=== PATIENT | male | born 1985 | race American Indian/Alaskan Native ===

== ENCOUNTER 2016-12-26 13:13 | Emergency (ER) | payer OTHER ==
[2016-12-26 13:14] VITALS: BMI 49.5
[2016-12-26 14:02] VITALS: RESP 16; TEMP 98.7
--- NOTE | 2016-12-26 14:12 | ED PDOC ---
Arrival/HPI - General Chief Complaint: Cough, Cold, Congestion Time Seen by Provider: 12/26/16 13:30 Historian: Patient - History of Present Illness Narrative History of Present Illness (Text): 12/26/16 13:58 A 31 year old male, whose past medical history includes bronchitis and seasonal allergies, presents to the emergency department complaining of hoarse voice and sore throat for 2 days. Patient reports also experiencing fatigue and nausea last night with temp up to 100 but denies any vomiting, abdominal pain, or any other complaints. Patient reports [place]; he [facility]. Also c/o small areas of itchy rash on legs. PMD: Dr. Vega Time/Duration: < week (2 days) Past Medical History - Provider Review Nursing Documentation Reviewed: Yes - Travel History Have you recently traveled outside w/in the past 3 mons?: Yes If Yes, travel location?: [facility] - Past History Past History: No Previous - Infectious Disease Hx of Infectious Diseases: None - Tetanus Immunization Tetanus Immunization: Unknown - Past Medical History Past Medical History: No Previous - Cardiac Hx Cardiac Disorders: No - Pulmonary Hx Bronchitis: Yes - Neurological Hx Neurological Disorder: No - HEENT Hx HEENT Disorder: No - Renal Hx Renal Disorder: No - Endocrine/Metabolic Hx Endocrine Disorders: No - Hematological/Oncological Hx Blood Disorders: No - Integumentary Hx Dermatological Disorder: No - Musculoskeletal/Rheumatological Hx Musculoskeletal Disorders: Yes Other/Comment: Knee Pain - Gastrointestinal Hx Gastrointestinal Disorders: No - Genitourinary/Gynecological Hx Genitourinary Disorders: No - Psychiatric Hx Depression: No Hx Substance Use: No - Past Surgical History Past Surgical History: No Previous - Surgical History Hx Orthopedic Surgery: Yes Other/Comment: Right Knee - Anesthesia Hx Anesthesia: Yes Hx Anesthesia Reactions: No Hx Malignant Hyperthermia: No - Suicidal Assessment Feels Threatened In Home Enviroment: No Family/Social History - Physician Review Nursing Documentation Reviewed: Yes Family/Social History: No Known Family HX Smoking Status: Light Smoker < 10 Cigarettes Daily Hx Alcohol Use: Yes Hx Substance Use: No Hx Substance Use Treatment: No Allergies/Home Meds Allergies/Adverse Reactions: Allergies peanut Allergy (Verified 12/26/16 13:47) RASH SEASONAL Allergy (Uncoded 12/06/16 18:20) WHEEZING Home Medications: Home Meds Medication Instructions Recorded Confirmed Cetirizine HCl [Zyrtec Allergy] 0 mg PO PRN 12/26/16 12/26/16 Review of Systems - Physician Review All systems were reviewed & negative as marked: Yes - Review of Systems Constitutional: Fevers (last night) ENT: Voice Changes (hoarse voice as described by patient), Sore Throat Gastrointestinal: Nausea (last night). absent: Abdominal Pain, Vomiting Physical Exam Vital Signs Reviewed: Yes Vital Signs Temp Pulse Resp BP Pulse Ox 12/26/16 13:44 98.7 F 58 L 16 130/73 98 Temperature: Afebrile Blood Pressure: Normal Pulse: Regular Respiratory Rate: Normal Appearance: Positive for: Well-Appearing Pain Distress: None Mental Status: Positive for: Alert and Oriented X 3 - Systems Exam Head: Present: Atraumatic, Normocephalic Pupils: Present: PERRL Conjunctiva: Present: Normal Mouth: Present: Moist Mucous Membranes Pharnyx: Present: Normal. No: ERYTHEMA, EXUDATE Neck: Present: Normal Range of Motion Respiratory/Chest: Present: Clear to Auscultation, Good Air Exchange. No: Respiratory Distress, Accessory Muscle Use Cardiovascular: Present: Regular Rate and Rhythm, Normal S1, S2. No: Murmurs Abdomen: Present: Normal Bowel Sounds. No: Tenderness, Distention, Peritoneal Signs Back: Present: Normal Inspection Upper Extremity: Present: Normal Inspection. No: Cyanosis, Edema Lower Extremity: Present: Normal Inspection. No: Edema Neurological: Present: GCS=15, CN II-XII Intact, Speech Normal Skin: Present: Erythematous (papular erythematous burnette in LE, excoriation burnette near hair follicles) Psychiatric: Present: Alert, Oriented x 3, Normal Insight, Normal Concentration Medical Decision Making ED Course and Treatment: 12/26/16 14:03 Impression: 31 year old male with hoarse voice, sore throat, and weakness. No fever here. Physical exam shows papular erythematous burnette in LE, excoriation burnette near hair follicles. Findings associated with URI. 0/5 by Centor score. Due to recent travel to [facility], patient will send malaria smear and Dengue Ab. Plan: -- Labs -- Reassess and disposition Prior Visits: Notes and results from previous visits were reviewed. Patient was last seen in the emergency department on 12/06/2016 for sharp intermittent bilateral upper abdominal pain. Patient was discharged home. Progress Notes: 12/26/16 14:50 CBC is unremarkable. Malaria and dengue blood work sent - will be followed through [place] folder. History otherwise consistent with URI and exam is unremarkable, except for rash - will d/c to use ibuprofen and robitussin DM and bactroban for rash. - Lab Interpretations Lab Results: 12/26/16 14:16 Lab Results 12/26/16 14:16: WBC 3.9 L D, RBC 4.65, Hgb 13.9 L, Hct 40.9 L, MCV 88.0, MCH 29.9, MCHC 34.0, RDW 13.6, Plt Count 217, MPV 10.7, Gran % 55.8, Lymph % (Auto) 34.9, [place]ham % (Auto) 6.5 H, Eos % (Auto) 2.3, Baso % (Auto) 0.5, Gran # 2.16, Lymph # 1.4, Windham # 0.3, Eos # 0.1, Baso # 0.02 - Scribe Statement The provider has reviewed the documentation as recorded by the Sarita Cook Provider Scribe Attestation: All medical record entries made by the Sarita were at my direction and personally dictated by me. I have reviewed the chart and agree that the record accurately reflects my personal performance of the history, physical exam, medical decision making, and the department course for this patient. I have also personally directed, reviewed, and agree with the discharge instructions and disposition. Disposition/Present on Arrival - Present on Arrival Any Indicators Present on Arrival: No History of DVT/PE: No History of Uncontrolled Diabetes: No Urinary Catheter: No History of Decub. Ulcer: No History Surgical Site Infection Following: None - Disposition Have Diagnosis and Disposition been Completed?: Yes Diagnosis: Upper respiratory infection, Rash Disposition: HOME/ ROUTINE Disposition Time: 14:40 Patient Plan: Discharge Condition: GOOD Discharge Instructions (ExitCare): Laryngitis (ED) Additional Instructions: Drink plenty of fluids. Take the medications as prescribed. Benadryl as needed for itching. Follow up with your primary care doctor. Return to the emergency department if any new concerning symptoms. Prescriptions: guaiFENesin/Dextromethorphan [Q-Tussin Dm 10 MG/5 Ml-100 MG/5 Ml 120 Ml] 4 tsp PO Q4H PRN #240 ml PRN Reason: Cough Ibuprofen [Motrin Tab] 1 tab PO Q8H PRN #20 tab PRN Reason: Pain, Moderate (4-7) Mupirocin 2% Cream [Bactroban Cream] 1 cre TOP BID #30 gm Referrals: Abel Vega DO [Primary Care Provider] - Follow up with primary Forms: [employer] ([place])
[2016-12-26 14:24] LABS: BASO # 0.02 K/mm3 (0.0-2.0); BASO % 0.5 % (0.0-3.0); EOS # 0.1 (0.0-0.7); EOS % 2.3 % (1.5-5.0); GRAN # 2.16 (1.4-6.5); GRAN % 55.8 % (50.0-68.0); HEMATOCRIT 40.9 % (42.0-52.0); LYMPH # 1.4 (1.2-3.4); LYMPH % 34.9 % (22.0-35.0); MEAN CORPUSCULAR HEMOGLOBIN 29.9 pg (25.0-35.0); MEAN PLATELET VOLUME 10.7 fl (7.0-11.0); MONO # 0.3 (0.1-0.6); MONO % 6.5 % (1.0-6.0); RED CELL DISTRIBUTION WIDTH 13.6 % (11.5-14.5); WHITE BLOOD COUNT 3.9 10^3/ul (4.5-11.0)
[2016-12-26 14:52] VITALS: BP 132/78; PULSE 62; O2SAT 100
== END 2016-12-26 14:46 | disposition home or self-care (01) ==
LOC: ED 13:13
DX: R21 Rash and other nonspecific skin eruption (principal); J06.9 Acute upper respiratory infection, unspecified; F17.210 Nicotine dependence, cigarettes, uncomplicated

== ENCOUNTER 2017-01-15 01:15 | Emergency (ER) | payer OTHER ==
[2017-01-15 01:16] VITALS: BMI 49.5
[2017-01-15 01:33] VITALS: TEMP 97.8
--- NOTE | 2017-01-15 01:40 | ED PDOC ---
Arrival/HPI - General Historian: Patient <Rayray Castillo - Last Filed: 01/15/17 01:36> <Mark Ray - Last Filed: 01/15/17 01:48> - General Chief Complaint: ENT Problem Time Seen by Provider: 01/15/17 01:36 - History of Present Illness Narrative History of Present Illness (Text): 01/15/17 01:37 31 y/o male, no significant pmh, nkda, c/o throat pain started today. Aching pain, fever with unknown tmax, aggravated by swallowing, associated with the neck pain, no difficulty swallowing, eating and drinking well, no coughing, no night sweat no rash, no other medical or psychological complaints. (Rayray Castillo) Past Medical History - Provider Review Nursing Documentation Reviewed: Yes - Past History Past History: No Previous - Infectious Disease Hx of Infectious Diseases: None - Tetanus Immunization Tetanus Immunization: Unknown - Past Medical History Past Medical History: No Previous - Cardiac Hx Cardiac Disorders: No - Pulmonary Hx Bronchitis: Yes - Neurological Hx Neurological Disorder: No - HEENT Hx HEENT Disorder: No - Renal Hx Renal Disorder: No - Endocrine/Metabolic Hx Endocrine Disorders: No - Hematological/Oncological Hx Blood Disorders: No - Integumentary Hx Dermatological Disorder: No - Musculoskeletal/Rheumatological Hx Musculoskeletal Disorders: Yes Other/Comment: Knee Pain - Gastrointestinal Hx Gastrointestinal Disorders: No - Genitourinary/Gynecological Hx Genitourinary Disorders: No - Psychiatric Hx Depression: No Hx Substance Use: No - Past Surgical History Past Surgical History: No Previous - Surgical History Hx Orthopedic Surgery: Yes (jackie 2007) Other/Comment: Right Knee - Anesthesia Hx Anesthesia: Yes Hx Anesthesia Reactions: No Hx Malignant Hyperthermia: No - Suicidal Assessment Feels Threatened In Home Enviroment: No <Rayray Castillo - Last Filed: 01/15/17 01:36> Family/Social History - Physician Review Nursing Documentation Reviewed: Yes Family/Social History: Unknown Family HX Smoking Status: Light Smoker < 10 Cigarettes Daily Hx Alcohol Use: Yes Frequency of alcohol use: Socially Hx Substance Use: No Hx Substance Use Treatment: No <Rayray Castillo - Last Filed: 01/15/17 01:36> Allergies/Home Meds <Rayray Castillo - Last Filed: 01/15/17 01:36> <Mark Ray - Last Filed: 01/15/17 01:48> Allergies/Adverse Reactions: Allergies peanut Allergy (Verified 01/15/17 01:29) RASH SEASONAL Allergy (Uncoded 01/15/17 01:29) WHEEZING Home Medications: Home Meds Medication Instructions Recorded Confirmed Cetirizine HCl [Zyrtec Allergy] 0 mg PO PRN 12/26/16 12/26/16 Review of Systems - Review of Systems Constitutional: Fevers. absent: Fatigue Eyes: absent: Vision Changes ENT: Sore Throat. absent: Hearing Changes Respiratory: absent: SOB, Cough Cardiovascular: absent: Chest Pain Gastrointestinal: absent: Abdominal Pain, Nausea, Vomiting Musculoskeletal: absent: Arthralgias, Back Pain, Myalgias Skin: absent: Rash, Pruritis Neurological: absent: Headache, Dizziness Psychiatric: absent: Anxiety, Depression <Rayray Castillo Q - Last Filed: 01/15/17 01:36> Physical Exam Pain Distress: Moderate - Systems Exam Head: Present: Atraumatic, Normocephalic Pupils: Present: PERRL Extroacular Muscles: Present: EOMI Conjunctiva: Present: Normal Mouth: Present: Moist Mucous Membranes Pharnyx: Present: ERYTHEMA, TONSILS ENLARGED. No: EXUDATE, Peritonsilar Swelling, Uvular Deviation, Muffled/Hoarse Voice, Strider, Soft Palate/Uvular Edema Nose (External): Present: Atraumatic. No: Abrasion, Contusion Nose (Internal): Present: Normal Inspection, No Active Bleeding. No: Rhinorrhea , Septal Hematoma, Epistaxis Neck: Present: Normal Range of Motion, Lymphadenopathy (rt. anterior cervical) Respiratory/Chest: Present: Clear to Auscultation, Good Air Exchange. No: Respiratory Distress, Accessory Muscle Use, Wheezes, Decreased Breath Sounds, Rales, Retracting, Rhonchi Cardiovascular: Present: Regular Rate and Rhythm, Normal S1, S2. No: Murmurs Abdomen: Present: Normal Bowel Sounds. No: Tenderness, Distention, Peritoneal Signs, Rebound, Guarding Back: Present: Normal Inspection Upper Extremity: Present: Normal Inspection. No: Cyanosis, Edema Lower Extremity: Present: Normal Inspection. No: Edema Neurological: Present: GCS=15, CN II-XII Intact, Speech Normal Skin: Present: Warm, Dry, Normal Color. No: Rashes Psychiatric: Present: Alert, Oriented x 3, Normal Insight, Normal Concentration <Rayray Castillo - Last Filed: 01/15/17 01:36> Vital Signs Temp Pulse Resp BP Pulse Ox 01/15/17 01:30 97.8 F 01/15/17 01:16 60 16 119/75 100 Medical Decision Making <Rayray Castillo - Last Filed: 01/15/17 01:36> <Mark Ray - Last Filed: 01/15/17 01:48> ED Course and Treatment: 01/15/17 01:40 -motrin -Discharge home with augmentin, motrin, salt water gargling, soft food diet, stay hydrated, follow up with your own pmd and ENT/Infectious disease within 2 days, return to the ER for any new or worsening signs or symptoms. (Rayray Castillo) - Medication Orders Current Medication Orders: Amoxicillin/Clavulanate Potassium (Augmentin 875 Mg-125 Mg Tab) 1 tab PO STAT STA PRN Reason: Protocol Stop: 01/15/17 01:47 Discontinued Medications Ibuprofen (Motrin Tab) 600 mg PO STAT STA Stop: 01/15/17 01:37 - PA / WEB DESIGNER DEVELOPER / Resident Statement ANALISA has reviewed & agrees with the documentation as recorded. <Rayray Castillo - Last Filed: 01/15/17 01:36> - PA / WEB DESIGNER DEVELOPER / Resident Statement ANALISA has reviewed & agrees with the documentation as recorded. <Mark Ray - Last Filed: 01/15/17 01:48> Disposition/Present on Arrival - Present on Arrival Any Indicators Present on Arrival: No History of DVT/PE: No History of Uncontrolled Diabetes: No Urinary Catheter: No History of Decub. Ulcer: No History Surgical Site Infection Following: None - Disposition Have Diagnosis and Disposition been Completed?: Yes Disposition Time: 01:41 Patient Plan: Discharge <Rayray Castillo - Last Filed: 01/15/17 01:36> <Mark Ray - Last Filed: 01/15/17 01:48> - Disposition Diagnosis: Sore throat, Enlarged tonsils, Lymphadenopathy Disposition: HOME/ ROUTINE Condition: GOOD Additional Instructions: -Discharge home with augmentin, motrin, salt water gargling, soft food diet, stay hydrated, follow up with your own pmd and ENT/Infectious disease within 2 days, return to the ER for any new or worsening signs or symptoms. Prescriptions: Amoxicillin/Clavulanate [Augmentin 875 MG-125 MG] 1 tab PO BID #20 tab Ibuprofen [Motrin Tab] 600 mg PO QID PRN #30 tab PRN Reason: Other Referrals: Taj Lugo DO [Staff Provider] - Follow up with primary Jaren Roberts MD [Staff Provider] - Follow up with primary Forms: WORK NOTE
[2017-01-15] MEDS ORDERED: Amoxicillin-Clav 875-125 mg Tab PO STA (01:46)
[2017-01-15 01:47] VITALS: BP 119/75; PULSE 60; RESP 16; O2SAT 100
== END 2017-01-15 02:37 | disposition home or self-care (01) ==
LOC: ED 01:15
DX: J02.9 Acute pharyngitis, unspecified (principal); J35.1 Hypertrophy of tonsils; R59.1 Generalized enlarged lymph nodes; F17.210 Nicotine dependence, cigarettes, uncomplicated

== ENCOUNTER 2017-04-20 20:21 | Emergency (ER) | payer MEDICAID, OTHER ==
[2017-04-20 20:22] VITALS: BMI 49.5
[2017-04-20 20:31] VITALS: RESP 17
--- NOTE | 2017-04-20 21:15 | ED PDOC ---
Arrival/HPI - General Chief Complaint: Flu-like Symptoms Time Seen by Provider: 04/20/17 21:11 Historian: Patient - History of Present Illness Narrative History of Present Illness (Text): 04/20/17 21:12 32 y/o male, no significant pmh, nkda, c/o runny nose/cough/bodyache suddenly started last night. Aching bodyache, cough with throat pain and runny nose, tmax 102F, no night sweat, no rash, no neck stiffness, no headache, no change in vision, no abdominal or pelvic pain, no other medical or psychological complaints. Past Medical History - Provider Review Nursing Documentation Reviewed: Yes - Past History Past History: No Previous - Infectious Disease Hx of Infectious Diseases: None - Tetanus Immunization Tetanus Immunization: Unknown - Past Medical History Past Medical History: No Previous - Cardiac Hx Cardiac Disorders: No - Pulmonary Hx Respiratory Disorders: Yes Hx Bronchitis: Yes - Neurological Hx Neurological Disorder: No - HEENT Hx HEENT Disorder: No - Renal Hx Renal Disorder: No - Endocrine/Metabolic Hx Endocrine Disorders: No - Hematological/Oncological Hx Blood Disorders: No - Integumentary Hx Dermatological Disorder: No - Musculoskeletal/Rheumatological Hx Musculoskeletal Disorders: Yes Other/Comment: Knee Pain - Gastrointestinal Hx Gastrointestinal Disorders: No - Genitourinary/Gynecological Hx Genitourinary Disorders: No - Psychiatric Hx Psychophysiologic Disorder: No Hx Substance Use: No - Past Surgical History Past Surgical History: No Previous - Surgical History Hx Orthopedic Surgery: Yes (finger 2008, R KNEE) - Anesthesia Hx Anesthesia: Yes Hx Anesthesia Reactions: No Hx Malignant Hyperthermia: No - Suicidal Assessment Feels Threatened In Home Enviroment: No Family/Social History - Physician Review Nursing Documentation Reviewed: Yes Family/Social History: Unknown Family HX Smoking Status: Light Smoker < 10 Cigarettes Daily Hx Alcohol Use: Yes Frequency of alcohol use: Socially Hx Substance Use: No Hx Substance Use Treatment: No Allergies/Home Meds Allergies/Adverse Reactions: Allergies peanut Allergy (Verified 04/20/17 20:27) RASH SEASONAL Allergy (Uncoded 04/20/17 20:27) WHEEZING Review of Systems - Review of Systems Constitutional: Fatigue, Fevers Eyes: absent: Vision Changes ENT: Rhinorrhea. absent: Hearing Changes Respiratory: Cough. absent: SOB, Sputum, Wheezing Cardiovascular: absent: Chest Pain Gastrointestinal: absent: Abdominal Pain, Diarrhea, Nausea, Vomiting Musculoskeletal: Myalgias. absent: Arthralgias, Back Pain Skin: absent: Rash, Pruritis, Skin Lesions, Ulcer Neurological: absent: Headache, Dizziness Psychiatric: absent: Anxiety, Depression, Suicidal Ideation Physical Exam Vital Signs Reviewed: Yes Vital Signs Temp Pulse Resp BP Pulse Ox 04/20/17 20:30 99.8 F H 60 17 128/84 97 Temperature: Afebrile Blood Pressure: Normal Pulse: Regular Respiratory Rate: Normal Appearance: Positive for: Well-Appearing, Non-Toxic, Comfortable Pain Distress: Moderate Mental Status: Positive for: Alert and Oriented X 3 - Systems Exam Head: Present: Atraumatic, Normocephalic Pupils: Present: PERRL Extroacular Muscles: Present: EOMI Conjunctiva: Present: Normal Mouth: Present: Moist Mucous Membranes Pharnyx: No: ERYTHEMA, EXUDATE, TONSILS ENLARGED Nose (External): Present: Atraumatic. No: Abrasion, Contusion, Laceration, Lesions Nose (Internal): Present: Normal Inspection, No Active Bleeding, Rhinorrhea. No : Septal Hematoma, Epistaxis Neck: Present: Normal Range of Motion, Trachea Midline. No: Meningeal Signs, MIDLINE TENDERNESS, Paraspinal Tenderness, Lymphadenopathy Respiratory/Chest: Present: Clear to Auscultation, Good Air Exchange, Rhonchi ( clear with coughing). No: Respiratory Distress, Accessory Muscle Use, Wheezes, Decreased Breath Sounds, Rales, Retracting Cardiovascular: Present: Regular Rate and Rhythm, Normal S1, S2. No: Murmurs Abdomen: Present: Normal Bowel Sounds. No: Tenderness, Distention, Peritoneal Signs, Rebound, Guarding Back: Present: Normal Inspection. No: CVA Tenderness, Midline Tenderness Upper Extremity: Present: Normal Inspection. No: Cyanosis, Edema Lower Extremity: Present: Normal Inspection. No: Edema Neurological: Present: GCS=15, CN II-XII Intact, Speech Normal, Motor Func Grossly Intact, Gait Normal, Memory Normal Skin: Present: Warm, Dry, Normal Color. No: Rashes Psychiatric: Present: Alert, Oriented x 3, Normal Insight, Normal Concentration Medical Decision Making ED Course and Treatment: 04/20/17 21:14 -motrin -rapid flu -observe and reassess 04/20/17 22:14 -Rapid flu is negative but clinical suspicious is moderate to high. -tamiflu/prednisone/duoneb/zithromax ordered with the rhonci resolved. -Discharge home with tamiflu, tylenol/motrin, tessalon, zithromax, prednisone, albuterol, stop smoking, stay hydrated, bed rest, follow up with your own pmd within 2 days, return to the ER for any new or worsening signs or symptoms. - Lab Interpretations Lab Results: Lab Results 04/20/17 21:20: Influenza Typ A,B (EIA) Negative for flu a/b - Medication Orders Current Medication Orders: Albuterol/Ipratropium (Duoneb 3 Mg/0.5 Mg (3 Ml) Ud) 3 ml IH STAT STA Stop: 04/20/17 22:14 Azithromycin (Zithromax) 500 mg PO STAT STA PRN Reason: Protocol Stop: 04/20/17 22:14 Prednisone (Prednisone Tab) 60 mg PO STAT ONE Stop: 04/20/17 22:14 Discontinued Medications Ibuprofen (Motrin Tab) 800 mg PO STAT STA Stop: 04/20/17 21:12 Last Admin: 04/20/17 21:22 Dose: 800 mg MAR Pain/Vitals Document 04/20/17 21:22 IT (Rec: 04/20/17 21:22 IT [id number]) Pain Reassessment Is This A Pain ReAssessment? No Sleep Is patient sleeping during reassessment? No Presence of Pain Presence of Pain No Oseltamivir Phosphate (Tamiflu Cap) 75 mg PO STAT STA PRN Reason: Protocol Stop: 04/20/17 22:08 - PA / PHARMACY INFORMATICS SPECIALIST / Resident Statement MD/DO has reviewed & agrees with the documentation as recorded. Disposition/Present on Arrival - Present on Arrival Any Indicators Present on Arrival: No History of DVT/PE: No History of Uncontrolled Diabetes: No Urinary Catheter: No History of Decub. Ulcer: No History Surgical Site Infection Following: None - Disposition Have Diagnosis and Disposition been Completed?: Yes Diagnosis: Flu-like symptoms, Bronchitis Disposition: HOME/ ROUTINE Disposition Time: 21:15 Patient Plan: Discharge Patient Problems: Current Active Problems Problem Status Onset Flu-like symptoms Acute Condition: IMPROVED Additional Instructions: -Discharge home with tamiflu, tylenol/motrin, tessalon, zithromax, prednisone, albuterol, stop smoking, stay hydrated, bed rest, follow up with your own pmd within 2 days, return to the ER for any new or worsening signs or symptoms. Prescriptions: Albuterol HFA [Ventolin HFA 90 mcg/actuation (8 g)] 2 puff IH [id number] #1 in Azithromycin [Zithromax] 250 mg PO DAILY #4 tab Benzonatate [Tessalon Perles] 100 mg PO TID PRN #30 sgl PRN Reason: Other Ibuprofen [Motrin] 600 mg PO QID PRN #24 tab PRN Reason: Other Oseltamivir [Tamiflu] 75 mg PO BID #10 cap Prednisone 50 mg PO DAILY #4 tablet Referrals: edulio Clara Req, [Non-Staff] - [place] up [place] [facility] [place] [facility] [place] - Follow up with primary Forms: WORK NOTE
[2017-04-20] MEDS ORDERED: Albuterol-Ipratrop 3 mg / 0.5 (3 ml) UD IH STA (22:13)
[2017-04-20 22:46] VITALS: PULSE 82; TEMP 99.2; O2SAT 100
[2017-04-20 23:59] VITALS: BP 130/82
== END 2017-04-20 22:48 | disposition home or self-care (01) ==
LOC: ED 20:21
DX: J11.1 Influenza due to unidentified influenza virus with other respiratory manifestations (principal); F17.210 Nicotine dependence, cigarettes, uncomplicated

== ENCOUNTER 2017-04-23 12:27 | Emergency (ER) | payer MEDICAID, OTHER ==
[2017-04-23 12:38] VITALS: PULSE 61; TEMP 98.5; O2SAT 100; BMI 22.6
[2017-04-23] MEDS ORDERED: Sodium Chloride 0.9% 1,000 ML IV STA (12:44)
--- NOTE | 2017-04-23 12:48 | ED PDOC ---
Arrival/HPI - General Chief Complaint: Chest Pain Time Seen by Provider: 04/23/17 12:38 Historian: Patient - History of Present Illness Narrative History of Present Illness (Text): 04/23/17 12:45 32 y/o male, no significant pmh, nkda, c/o coughing/fever/fatigue x 4 days. Pt. stated that the patient has been coughing, associated with 102F fever, prescribed tamiflu but didn't fill the prescription, no nausea or vomiting, no night sweat, no numbness or tingling, no other medical or psychological complaints. Past Medical History - Provider Review Nursing Documentation Reviewed: Yes - Past History Past History: No Previous - Infectious Disease Hx of Infectious Diseases: None - Tetanus Immunization Tetanus Immunization: Unknown - Past Medical History Past Medical History: No Previous - Cardiac Hx Cardiac Disorders: No - Pulmonary Hx Respiratory Disorders: Yes Hx Bronchitis: Yes - Neurological Hx Neurological Disorder: No - HEENT Hx HEENT Disorder: No - Renal Hx Renal Disorder: No - Endocrine/Metabolic Hx Endocrine Disorders: No - Hematological/Oncological Hx Blood Disorders: No - Integumentary Hx Dermatological Disorder: No - Musculoskeletal/Rheumatological Hx Musculoskeletal Disorders: Yes Other/Comment: Knee Pain - Gastrointestinal Hx Gastrointestinal Disorders: No - Genitourinary/Gynecological Hx Genitourinary Disorders: No - Psychiatric Hx Psychophysiologic Disorder: No Hx Substance Use: No - Past Surgical History Past Surgical History: No Previous - Surgical History Hx Orthopedic Surgery: Yes (finger 2008, R KNEE) - Anesthesia Hx Anesthesia: Yes Hx Anesthesia Reactions: No Hx Malignant Hyperthermia: No - Suicidal Assessment Feels Threatened In Home Enviroment: No Family/Social History - Physician Review Nursing Documentation Reviewed: Yes Family/Social History: Unknown Family HX Smoking Status: Light Smoker < 10 Cigarettes Daily Hx Alcohol Use: Yes Hx Substance Use: No Hx Substance Use Treatment: No Allergies/Home Meds Allergies/Adverse Reactions: Allergies peanut Allergy (Verified 04/23/17 12:37) RASH SEASONAL Allergy (Uncoded 04/23/17 12:37) WHEEZING Review of Systems - Review of Systems Constitutional: Fatigue, Fevers Eyes: absent: Vision Changes ENT: absent: Hearing Changes Respiratory: Cough. absent: SOB, Sputum, Wheezing Cardiovascular: Chest Pain Gastrointestinal: absent: Abdominal Pain, Diarrhea, Nausea, Vomiting Musculoskeletal: absent: Arthralgias, Back Pain Skin: absent: Rash, Pruritis Psychiatric: absent: Anxiety, Depression, Suicidal Ideation Physical Exam Vital Signs Reviewed: Yes Vital Signs Temp Pulse Resp BP Pulse Ox 04/23/17 14:37 61 19 116/72 100 04/23/17 12:38 98.5 F 61 20 145/86 100 Temperature: Afebrile Blood Pressure: Normal Pulse: Regular Respiratory Rate: Normal Appearance: Positive for: Well-Appearing, Non-Toxic, Comfortable Pain Distress: Mild Mental Status: Positive for: Alert and Oriented X 3 - Systems Exam Head: Present: Atraumatic, Normocephalic Pupils: Present: PERRL Extroacular Muscles: Present: EOMI Conjunctiva: Present: Normal Mouth: Present: Moist Mucous Membranes Neck: Present: Normal Range of Motion Respiratory/Chest: Present: Clear to Auscultation, Good Air Exchange. No: Respiratory Distress, Accessory Muscle Use, Wheezes, Retracting, Rhonchi Cardiovascular: Present: Regular Rate and Rhythm, Normal S1, S2. No: Murmurs Abdomen: Present: Normal Bowel Sounds. No: Tenderness, Distention, Peritoneal Signs, Rebound, Guarding Back: Present: Normal Inspection Upper Extremity: Present: Normal Inspection. No: Cyanosis, Edema Lower Extremity: Present: Normal Inspection. No: Edema Neurological: Present: GCS=15, CN II-XII Intact, Speech Normal Skin: Present: Warm, Dry, Normal Color. No: Rashes Psychiatric: Present: Alert, Oriented x 3, Normal Insight, Normal Concentration Medical Decision Making ED Course and Treatment: 04/23/17 12:48 -labs/ua -ekg -chest xray -IVF/tylenol -observe and reassess 04/23/17 14:51 -EKG: NSR @ 66 BPM, no ST elevation or depression, T wave inversion on lead III , no previous ekg comparison. -Chest xray show no active disease -Labs are non-significant except wbc 2.9 (clinically appearing to be viral which likely to be influenza), tamiflu ordered -UA show no UTI -Pt. is non-toxic looking, advised to fill the tamiflu flu prescription on from 3 days ago which I will reprint it out, Please continue your medication at home. -Discharge home with tamiflu, tessalon, take motrin/tylenol, stay hydrated, follow up with your own pmd and Infectious disease within 2 days, return to the ER for any new or worsening signs or symptoms. - Lab Interpretations Lab Results: 04/23/17 12:54 04/23/17 12:54 Lab Results 04/23/17 12:54: WBC 2.9 L* D, RBC 5.44, Hgb 16.4 D, Hct 48.9, MCV 89.9, MCH 30.1, MCHC 33.5, RDW 13.9, Plt Count 178, MPV 11.3 H, Gran % 53.0, Lymph % (Auto ) 33.4, Desha % (Auto) 13.3 H, Eos % (Auto) 0.0 L, Baso % (Auto) 0.3, Gran # 1.55 , Lymph # (Auto) 1.0 L, Desha # (Auto) 0.4, Eos # (Auto) 0.0, Baso # (Auto) 0.01 04/23/17 12:54: Sodium 141, Potassium 3.8, Chloride 100, Carbon Dioxide 30, Anion Gap 14, BUN 15, Creatinine 1.2, Est GFR ( Amer) > 60, Est GFR (Non- Af Amer) > 60, Random Glucose 89, Calcium 9.5, Total Bilirubin 0.4, AST 34, ALT 32, Alkaline Phosphatase 80, Lactate Dehydrogenase 568, Total Creatine Kinase 455 H, CK-MB (CK-2) < 0.2, CK-MB (CK-2) % Cancelled, Troponin I < 0.01, Total Protein 7.9, Albumin 4.4, Globulin 3.4, Albumin/Globulin Ratio 1.3 04/23/17 12:54: Urine Color Yellow, Urine Appearance Clear, Urine pH 6.0, Ur Specific [place] >= 1.030, Urine Protein 30 H, Urine Glucose (UA) Negative, Urine Ketones Negative, Urine Blood Negative, Urine Nitrate Negative, Urine Bilirubin Negative, Urine Urobilinogen 0.2, Ur Leukocyte Esterase Negative, Urine RBC Negative, Urine WBC 0 - 2, Ur Epithelial Cells None, Amorphous Sediment Few, Urine Bacteria Many - RAD Interpretation Radiology Orders: 04/23/17 12:44 CHEST TWO VIEWS (PA/LAT) [RAD] Stat HISTORY: cough and fever COMPARISON: No prior. TECHNIQUE: Chest PA and lateral FINDINGS: LUNGS: No active pulmonary disease. PLEURA: No significant pleural effusion identified. No pneumothorax apparent. CARDIOVASCULAR: Normal. OSSEOUS STRUCTURES: No significant abnormalities. VISUALIZED UPPER ABDOMEN: Normal. OTHER FINDINGS: None. IMPRESSION: No active disease. Maintenance Mechanic Telephone: Radiologist - EKG Interpretation EKG Interpretation (Text): 04/23/17 12:49 -EKG: NSR @ 66 BPM, no ST elevation or depression, T wave inversion on lead III , no previous ekg comparison. Interpreted by ED Physician: Yes Type: 12 lead EKG - Medication Orders Current Medication Orders: Discontinued Medications Acetaminophen (Tylenol 325mg Tab) 650 mg PO STAT STA Stop: 04/23/17 12:45 Last Admin: 04/23/17 13:18 Dose: 650 mg MAR Pain/Vitals Document 04/23/17 13:18 FRANCISCO J (Rec: 04/23/17 13:18 FRANCISCO J [id number]) Pain Reassessment Is This A Pain ReAssessment? No Sleep Is patient sleeping during reassessment? No Presence of Pain Presence of Pain Yes Sodium Chloride (Sodium Chloride 0.9%) 1,000 mls @ 999 mls/hr IV .Q1H1M STA Stop: 04/23/17 13:44 Last Admin: 04/23/17 13:17 Dose: 999 mls/hr eMAR Start Stop Document 04/23/17 13:17 FRANCISCO J (Rec: 04/23/17 13:18 FRNACISCO J [id number]) Intravenous Solution Start Date 04/23/17 Start Time 13:18 End Date 04/23/17 End time 14:18 Total Infusion Time 60 Oseltamivir Phosphate (Tamiflu Cap) 75 mg PO STAT STA PRN Reason: Protocol Stop: 04/23/17 13:31 Last Admin: 04/23/17 13:45 Dose: 75 mg - PA / [employer] / Resident Statement / has reviewed & agrees with the documentation as recorded. Disposition/Present on Arrival - Present on Arrival Any Indicators Present on Arrival: No History of DVT/PE: No History of Uncontrolled Diabetes: No Urinary Catheter: No History of Decub. Ulcer: No History Surgical Site Infection Following: None - Disposition Have Diagnosis and Disposition been Completed?: Yes Diagnosis: Viral URI Disposition: HOME/ ROUTINE Disposition Time: 12:49 Patient Plan: Discharge Patient Problems: Current Active Problems Problem Status Onset Viral URI Acute Condition: IMPROVED Additional Instructions: -Discharge home with tamiflu, tessalon, take motrin/tylenol, stay hydrated, follow up with your own pmd and Infectious disease within 2 days, return to the ER for any new or worsening signs or symptoms. Prescriptions: Benzonatate [Tessalon Perles] 100 mg PO TID PRN #30 sgl PRN Reason: Other Oseltamivir Phosphate [Tamiflu] 75 mg PO BID #10 capsule Referrals: Abel Vega DO [Primary Care Provider] - Follow up with primary Bean Velasquez MD [Staff Provider] - Follow up with primary Forms: WORK NOTE
[2017-04-23 13:16] LABS: BASO # 0.01 K/mm3 (0.0-2.0); BASO % 0.3 % (0.0-3.0); GRAN # 1.55 (1.4-6.5); HEMOGLOBIN 16.4 g/dL (14.0-18.0); LYMPH % 33.4 % (22.0-35.0); MEAN CELL VOLUME 89.9 fl (80.0-105.0); MEAN CORPUSCULAR HEMOGLOBIN 30.1 pg (25.0-35.0); MEAN CORPUSCULAR HGB CONC 33.5 g/dl (31.0-37.0); MEAN PLATELET VOLUME 11.3 fl (7.0-11.0); MONO # 0.4 (0.1-0.6); MONO % 13.3 % (1.0-6.0); RBC 5.44 10^6/uL (3.5-6.1); RED CELL DISTRIBUTION WIDTH 13.9 % (11.5-14.5); URINE BILIRUBIN NEGATIVE (NEGATIVE); URINE BLOOD NEGATIVE (NEGATIVE); URINE GLUCOSE (UA) NEGATIVE (NEGATIVE); URINE LEUKOCYTE ESTERASE NEGATIVE Leu/uL (NEGATIVE); URINE PROTEIN 30 mg/dL (<30 mg/dL); URINE UROBILINOGEN 0.2 E.U./dL (<1 E.U./dL)
[2017-04-23 13:23] LABS: ALB/GLOB RATIO 1.3 (1.1-1.8); ALBUMIN 4.4 g/dL (3.0-4.8); ALT/SGPT 32 U/L (7-56); AST/SGOT 34 U/L (17-59); BLOOD UREA NITROGEN 15 mg/dL (7-21); CALCIUM 9.5 mg/dL (8.4-10.5); GFR AFRICAN-AMERICAN > 60; GFR NON-AFRICAN AMERICAN > 60
[2017-04-23 13:24] LABS: WHITE BLOOD COUNT 2.9 10^3/ul (4.5-11.0)
[2017-04-23 13:29] LABS: URINE APPEARANCE CLEAR (CLEAR); URINE COLOR YELLOW (YELLOW)
[2017-04-23 13:30] LABS: URINE AMORPHOUS SEDIMENT FEW; URINE BACTERIA MANY (NEG); URINE RBC NEGATIVE /hpf (0-2); URINE WBC 0 - 2 /hpf (0-6)
[2017-04-23 13:34] LABS: TROPONIN I < 0.01 ng/mL
--- NOTE | 2017-04-23 13:41 | RAD ---
HISTORY: cough and fever COMPARISON: No prior. TECHNIQUE: Chest PA and lateral FINDINGS: LUNGS: No active pulmonary disease. PLEURA: No significant pleural effusion identified. No pneumothorax apparent. CARDIOVASCULAR: Normal. OSSEOUS STRUCTURES: No significant abnormalities. VISUALIZED UPPER ABDOMEN: Normal. OTHER FINDINGS: None. IMPRESSION: No active disease.
[2017-04-23 13:50] LABS: CK-MB < 0.2 ng/mL (0.0-3.6)
[2017-04-23 14:37] VITALS: BP 116/72; RESP 19
--- NOTE | 2017-04-23 14:46 | CARD ---
APPROVED REPORT EKG Measurement Heart [id number] <Conclusion> Normal sinus rhythm with sinus arrhythmia Nonspecific T wave abnormality
== END 2017-04-23 15:12 | disposition home or self-care (01) ==
LOC: ED 12:27
DX: J06.9 Acute upper respiratory infection, unspecified (principal); F17.210 Nicotine dependence, cigarettes, uncomplicated
CPT/HCPCS: 71046; 80053; 81001; 82550; 82553; 83615; 84484; 85025; 93005; 96360; 99284; J7040

== ENCOUNTER 2017-05-21 00:21 | Emergency (ER) | payer MEDICAID, OTHER ==
[2017-05-21 00:22] VITALS: BMI 22.6
--- NOTE | 2017-05-21 00:48 | ED PDOC ---
Arrival/HPI - General Time Seen by Provider: 05/21/17 00:32 Historian: Patient - History of Present Illness Narrative History of Present Illness (Text): 05/21/17 00:48 Js Hugo IV is a 32 year old male who presents to the Emergency department complaining of a lump to right inguinal area for the past few days. Patient reports associated discomfort. Patient reports he is sexually active.Some mild discomfort when urinating.No known penile discharge.Patient denies any fever, chills, abdominal pain, nausea, vomiting, headache, or any other complaints. Symptom Onset: Gradual Symptom Course: Unchanged Activities at Onset: Light Context: Home Past Medical History - Provider Review Nursing Documentation Reviewed: Yes - Past History Past History: No Previous - Infectious Disease Hx of Infectious Diseases: None - Tetanus Immunization Tetanus Immunization: Unknown - Past Medical History Past Medical History: No Previous - Cardiac Hx Cardiac Disorders: No - Pulmonary Hx Respiratory Disorders: Yes Hx Bronchitis: Yes - Neurological Hx Neurological Disorder: No - HEENT Hx HEENT Disorder: No - Renal Hx Renal Disorder: No - Endocrine/Metabolic Hx Endocrine Disorders: No - Hematological/Oncological Hx Blood Disorders: No - Integumentary Hx Dermatological Disorder: No - Musculoskeletal/Rheumatological Hx Musculoskeletal Disorders: Yes Other/Comment: Knee Pain - Gastrointestinal Hx Gastrointestinal Disorders: No - Genitourinary/Gynecological Hx Genitourinary Disorders: No - Psychiatric Hx Psychophysiologic Disorder: No Hx Substance Use: No - Past Surgical History Past Surgical History: No Previous - Surgical History Hx Orthopedic Surgery: Yes (finger 2008, R KNEE) - Anesthesia Hx Anesthesia: Yes Hx Anesthesia Reactions: No Hx Malignant Hyperthermia: No - Suicidal Assessment Feels Threatened In Home Enviroment: No Family/Social History - Physician Review Nursing Documentation Reviewed: Yes Family/Social History: Unknown Family HX Smoking Status: Light Smoker < 10 Cigarettes Daily Hx Alcohol Use: Yes Hx Substance Use: No Hx Substance Use Treatment: No Allergies/Home Meds Allergies/Adverse Reactions: Allergies peanut Allergy (Verified 05/21/17 00:43) RASH SEASONAL Allergy (Uncoded 05/21/17 00:43) WHEEZING Home Medications: Home Meds Medication Instructions Recorded Confirmed No Known Home Med 05/21/17 05/21/17 Review of Systems - Physician Review All systems were reviewed & negative as marked: Yes - Review of Systems Constitutional: Normal. absent: Fevers Eyes: Normal ENT: Normal Respiratory: Normal. absent: SOB, Cough Cardiovascular: Normal. absent: Chest Pain Gastrointestinal: absent: Diarrhea, Nausea, Vomiting Genitourinary Male: Normal. absent: Dysuria, Frequency, Hematuria, Urinary Output Changes Musculoskeletal: Normal. absent: Back Pain, Neck Pain Skin: Normal. absent: Rash Neurological: Normal. absent: Headache, Dizziness Endocrine: Normal Hemo/Lymphatic: Adenopathy (+right inguinal lump) Psychiatric: Normal Physical Exam Vital Signs Reviewed: Yes Vital Signs Temp Pulse Resp BP Pulse Ox 05/21/17 00:44 98.3 F 69 18 116/53 L 97 Temperature: Afebrile Blood Pressure: Normal Pulse: Regular Respiratory Rate: Normal Appearance: Positive for: Well-Appearing, Non-Toxic, Comfortable Pain Distress: None Mental Status: Positive for: Alert and Oriented X 3 - Systems Exam Head: Present: Atraumatic, Normocephalic Pupils: Present: PERRL Extroacular Muscles: Present: EOMI Conjunctiva: Present: Normal Mouth: Present: Moist Mucous Membranes Neck: Present: Normal Range of Motion Respiratory/Chest: Present: Clear to Auscultation, Good Air Exchange. No: Respiratory Distress, Accessory Muscle Use Cardiovascular: Present: Regular Rate and Rhythm, Normal S1, S2. No: Murmurs Abdomen: No: Tenderness, Distention, Peritoneal Signs Genitourinary Male: Present: Normal External Genitalia (Testes descended bilaterally). No: Penile Discharge, Testicle Tenderness, Erythema, Hernias, Testicle Swelling Back: Present: Normal Inspection Upper Extremity: Present: Normal Inspection. No: Cyanosis, Edema Lower Extremity: Present: Normal Inspection. No: Edema Neurological: Present: GCS=15, CN II-XII Intact, Speech Normal Skin: Present: Warm, Dry, Normal Color. No: Rashes Lymphatic: Present: Inguinal Adenopathy (Small palpable right inguinal lymph node, minimally tender) Psychiatric: Present: Alert, Oriented x 3, Normal Insight, Normal Concentration Medical Decision Making ED Course and Treatment: 05/21/17 00:48 Impression: 32 year old male complaining of a right inguinal lump for the past few days. Differential Diagnosis included but are not limited to: Plan: -- UA -- Reassess and disposition Progress Notes: - Lab Interpretations Lab Results: Lab Results 05/21/17 01:10: Urine Color Yellow, Urine Appearance Clear, Urine pH 6.5, Ur Specific [place] 1.020, Urine Protein Negative, Urine Glucose (UA) Negative, Urine Ketones Negative, Urine Blood Negative, Urine Nitrate Negative, Urine Bilirubin Negative, Urine Urobilinogen 1.0 H, Ur Leukocyte Esterase Negative - Medication Orders Current Medication Orders: Discontinued Medications Azithromycin (Zithromax) 1,000 mg PO ONCE STA PRN Reason: Protocol Stop: 05/21/17 01:53 Ceftriaxone Sodium (Rocephin) 250 mg IM STAT STA PRN Reason: Protocol Stop: 05/21/17 01:50 Ibuprofen (Motrin Tab) 600 mg PO STAT STA Stop: 05/21/17 01:54 - Scribe Statement The provider has reviewed the documentation as recorded by the Sarita Abraham Provider Scribe Attestation: All medical record entries made by the Scribe were at my direction and personally dictated by me. I have reviewed the chart and agree that the record accurately reflects my personal performance of the history, physical exam, medical decision making, and the department course for this patient. I have also personally directed, reviewed, and agree with the discharge instructions and disposition. Disposition/Present on Arrival - Present on Arrival Any Indicators Present on Arrival: No History of DVT/PE: No History of Uncontrolled Diabetes: No Urinary Catheter: No History Surgical Site Infection Following: None - Disposition Have Diagnosis and Disposition been Completed?: Yes Diagnosis: Urethritis Disposition: HOME/ ROUTINE Disposition Time: 01:54 Patient Plan: Discharge Patient Problems: Current Active Problems Problem Status Onset Urethritis Acute Condition: STABLE Discharge Instructions (ExitCare): Urethritis (DC) Additional Instructions: Drink plenty of liquids/Advil as directed /follow up with your doctor this week
[2017-05-21 00:49] VITALS: BP 116/53; PULSE 69; RESP 18; TEMP 98.3; O2SAT 97
[2017-05-21 01:28] LABS: PH,URINE 6.5 (4.7-8.0); URINE BILIRUBIN NEGATIVE (NEGATIVE); URINE BLOOD NEGATIVE (NEGATIVE); URINE GLUCOSE (UA) NEGATIVE (NEGATIVE); URINE LEUKOCYTE ESTERASE NEGATIVE Leu/uL (NEGATIVE); URINE PROTEIN NEGATIVE mg/dL (<30 mg/dL)
[2017-05-21 01:29] LABS: URINE APPEARANCE CLEAR (CLEAR); URINE COLOR YELLOW (YELLOW)
[2017-05-21] MEDS ORDERED: cefTRIAXone (Rocephin) 250 mg Inj IM STA (01:49)
== END 2017-05-21 02:15 | disposition home or self-care (01) ==
LOC: ED 00:21
DX: N34.2 Other urethritis (principal)
CPT/HCPCS: 81003; 87491; 87591; 96372; 99282; J0696

== ENCOUNTER 2017-10-30 23:19 | Emergency (ER) | payer SELFPAY ==
[2017-10-30 23:19] VITALS: BMI 22.6
[2017-10-30] MEDS ORDERED: Penicillin G Benzathine 1.2 Mill Unit/2 ml Syr IM STA (23:50)
--- NOTE | 2017-10-30 23:54 | ED PDOC ---
Arrival/HPI - General Historian: Patient <Cathryn Miramontes PA-C - Last Filed: 10/30/17 23:56> <Mark Ray - Last Filed: 10/30/17 23:59> - General Chief Complaint: ENT Problem Time Seen by Provider: 10/30/17 23:50 - History of Present Illness Narrative History of Present Illness (Text): 10/30/17 23:54 32 yo M c/o sore throat with body aches since yesterday. Denies any fever, chills, URI, N/V/D, rash, SOB, CP, recent travel, sick contacts. (Cathryn Miramontes PA-C) Past Medical History - Past History Past History: No Previous - Infectious Disease Hx of Infectious Diseases: None - Tetanus Immunization Tetanus Immunization: Unknown - Past Medical History Past Medical History: No Previous - Cardiac Hx Cardiac Disorders: No - Pulmonary Hx Respiratory Disorders: Yes Hx Bronchitis: Yes - Neurological Hx Neurological Disorder: No - HEENT Hx HEENT Disorder: No - Renal Hx Renal Disorder: No - Endocrine/Metabolic Hx Endocrine Disorders: No - Hematological/Oncological Hx Blood Disorders: No - Integumentary Hx Dermatological Disorder: No - Musculoskeletal/Rheumatological Hx Musculoskeletal Disorders: Yes Other/Comment: Knee Pain - Gastrointestinal Hx Gastrointestinal Disorders: No - Genitourinary/Gynecological Hx Genitourinary Disorders: No - Psychiatric Hx Psychophysiologic Disorder: No Hx Substance Use: No - Past Surgical History Past Surgical History: No Previous - Surgical History Hx Orthopedic Surgery: Yes (finger 2008, R KNEE) - Anesthesia Hx Anesthesia: Yes Hx Anesthesia Reactions: No Hx Malignant Hyperthermia: No - Suicidal Assessment Feels Threatened In Home Enviroment: No <Cathryn Miramontes PA-C - Last Filed: 10/30/17 23:56> Family/Social History Family/Social History: No Known Family HX Smoking Status: Light Smoker < 10 Cigarettes Daily Hx Alcohol Use: Yes Hx Substance Use: No Hx Substance Use Treatment: No <Cathryn Miramontes PA-C - Last Filed: 10/30/17 23:56> Allergies/Home Meds <Cathryn Miramontes PA-C - Last Filed: 10/30/17 23:56> <Mark Ray - Last Filed: 10/30/17 23:59> Allergies/Adverse Reactions: Allergies peanut Allergy (Verified 10/30/17 23:51) RASH SEASONAL Allergy (Uncoded 10/30/17 23:51) WHEEZING Review of Systems - Review of Systems Constitutional: absent: Fatigue, Fevers ENT: Sore Throat. absent: Rhinorrhea, Sinus Congestion Respiratory: absent: SOB, Cough Cardiovascular: absent: Chest Pain, Palpitations Skin: absent: Rash, Pruritis Neurological: absent: Headache, Dizziness <Cathryn Miramontes PA-C - Last Filed: 10/30/17 23:56> Physical Exam Temperature: Afebrile Blood Pressure: Hypertensive Pulse: Regular Respiratory Rate: Normal Appearance: Positive for: Well-Appearing, Non-Toxic, Comfortable Pain Distress: None Mental Status: Positive for: Alert and Oriented X 3 - Systems Exam Head: Present: Atraumatic, Normocephalic Pupils: Present: PERRL Extroacular Muscles: Present: EOMI Conjunctiva: Present: Normal Ears: Present: NORMAL TM, Normal Canal. No: Erythema, TM Bulging Mouth: Present: Moist Mucous Membranes Pharnyx: Present: ERYTHEMA, TONSILS ENLARGED (mildly enlarged ), Peritonsilar Swelling. No: EXUDATE, Uvular Deviation, Muffled/Hoarse Voice, Strider, Soft Palate/Uvular Edema Neck: Present: Normal Range of Motion. No: Meningeal Signs, Lymphadenopathy Respiratory/Chest: Present: Clear to Auscultation, Good Air Exchange. No: Respiratory Distress, Accessory Muscle Use Cardiovascular: Present: Regular Rate and Rhythm, Normal S1, S2. No: Murmurs Back: Present: Normal Inspection Upper Extremity: Present: Normal Inspection. No: Cyanosis, Edema Lower Extremity: Present: Normal Inspection. No: Edema Neurological: Present: GCS=15, CN II-XII Intact, Speech Normal Skin: Present: Warm, Dry, Normal Color. No: Rashes Psychiatric: Present: Alert, Oriented x 3, Normal Insight, Normal Concentration <Cathryn Miramontes PA-C - Last Filed: 10/30/17 23:56> Vital Signs Temp Pulse Resp BP Pulse Ox 10/30/17 23:44 99 F 84 17 123/73 96 10/30/17 23:38 98.2 F 88 18 162/69 H 98 Medical Decision Making <Cathryn Miramontes PA-C - Last Filed: 10/30/17 23:56> <Mark Ray - Last Filed: 10/30/17 23:59> ED Course and Treatment: 10/30/17 23:53 Plan : - pcn benzathine IM T 98 P 84 BP 123/73 R 17 O2sat 96%RA. Advised to follow up with primary care physician or the clinic in 1-2 days without fail. Advised to take medication as prescribed. Return to the emergency room at any time for any new or worsening symptoms. Patient states he fully agrees with and understands discharge instructions. States that he agrees with the plan and disposition. Verbalized and repeated discharge instructions and plan. I have given the patient opportunity to ask any additional questions. (Cathryn Miramontes PA-C) - Medication Orders Current Medication Orders: Discontinued Medications Penicillin G Benzathine (Bicillin L-A Inj) 1,200,000 units IM STAT STA PRN Reason: Protocol Stop: 10/30/17 23:51 - PA / PUBLISHING DIRECTOR / Resident Statement ANALISA has reviewed & agrees with the documentation as recorded. <Cathryn Miramontes PA-C - Last Filed: 10/30/17 23:56> - PA / PUBLISHING DIRECTOR / Resident Statement ANALISA has reviewed & agrees with the documentation as recorded. <Mark Ray - Last Filed: 10/30/17 23:59> Disposition/Present on Arrival - Present on Arrival Any Indicators Present on Arrival: No History of DVT/PE: No History of Uncontrolled Diabetes: No Urinary Catheter: No History of Decub. Ulcer: No History Surgical Site Infection Following: None - Disposition Have Diagnosis and Disposition been Completed?: Yes Disposition Time: 00:00 Patient Plan: Discharge <Cathryn Miramontes PA-C - Last Filed: 10/30/17 23:56> <Mark Ray - Last Filed: 10/30/17 23:59> - Disposition Diagnosis: Pharyngitis Disposition: HOME/ ROUTINE Patient Problems: Current Active Problems Problem Status Onset Pharyngitis Acute Condition: STABLE Discharge Instructions (ExitCare): Strep Throat (DC) Additional Instructions: Thank you for letting us take care of you today. You were treated for pharyngitis. The emergency medical care you received today was directed at your acute symptoms. If you were prescribed any medication, please fill it and take as directed. It may take several days for your symptoms to resolve. Return to the Emergency Department if your symptoms worsen, do not improve, or if you have any other problems. Please contact your doctor in 2 days for re-evaluation and follow up / or call one of the physicians/clinics you have been referred to that are listed on the Patient Visit Information form that is included in your discharge packet. Bring any paperwork you were given at discharge with you along with any medications you are taking to your follow up visit. Our treatment cannot replace ongoing medical care by a primary care provider (PCP) outside of the emergency department. Thank you for allowing the [facility] team to be part of your care today. Prescriptions: Ibuprofen [Motrin Tab] 600 mg PO QID PRN #20 tab PRN Reason: Pain, Moderate (4-7) Ref[place]: [facility] [place] [facility] [place] - Follow up with primary Forms: [employer] ([place]), WORK NOTE
[2017-10-30 23:55] VITALS: BP 123/73; PULSE 84; RESP 17; TEMP 99
[2017-10-31 00:12] VITALS: O2SAT 99
== END 2017-10-31 00:11 | disposition home or self-care (01) ==
LOC: ED 23:19
DX: J02.9 Acute pharyngitis, unspecified (principal); F17.210 Nicotine dependence, cigarettes, uncomplicated
CPT/HCPCS: 96372; 99282; J0561

== ENCOUNTER 2018-01-09 03:35 | Emergency (ER) | payer SELFPAY ==
[2018-01-09 03:45] VITALS: BMI 22.8
[2018-01-09 03:46] VITALS: TEMP 98.2
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
[2018-01-09] MEDS ORDERED: Penicillin G Benzathine 1.2 Mill Unit/2 ml Syr IM STA (04:43)
[2018-01-09 05:18] VITALS: BP 132/76; PULSE 72; RESP 19; O2SAT 98
== END 2018-01-09 05:17 | disposition home or self-care (01) ==
LOC: ED 03:35
DX: J02.9 Acute pharyngitis, unspecified (principal); F17.210 Nicotine dependence, cigarettes, uncomplicated
CPT/HCPCS: 96372; 99283; J0561; J1100

== ENCOUNTER 2018-01-17 19:34 | Emergency (ER) | payer OTHER ==
[2018-01-17 19:35] VITALS: BMI 22.8
[2018-01-17] MEDS ORDERED: Albuterol-Ipratrop 3 mg / 0.5 (3 ml) UD IH STA ×2 (20:55→22:01)
[2018-01-17 21:57] VITALS: RESP 18
--- NOTE | 2018-01-17 22:27 | ED PDOC ---
Arrival/HPI - General Chief Complaint: Cough, Cold, Congestion Historian: Patient - History of Present Illness Narrative History of Present Illness (Text): 01/17/18 22:19 32yo male with pmhx of Bronchitis and a tobacco smoker present with complaint of nonproductive cough x 2weeks. States he started having chest pain with the cough and SOB with deep inspiration today. States he has been using his neb treatment at home without relieve. Denies fever, chills, sick contact, travel, LE edema, calf pain, night sweats, any other complaint. Past Medical History - Provider Review Nursing Documentation Reviewed: Yes - Past History Past History: No Previous - Infectious Disease Hx of Infectious Diseases: None - Tetanus Immunization Tetanus Immunization: Unknown - Past Medical History Past Medical History: No Previous - Cardiac Hx Cardiac Disorders: No - Pulmonary Hx Respiratory Disorders: Yes Hx Bronchitis: Yes - Neurological Hx Neurological Disorder: No - HEENT Hx HEENT Disorder: No - Renal Hx Renal Disorder: No - Endocrine/Metabolic Hx Endocrine Disorders: No - Hematological/Oncological Hx Blood Disorders: No - Integumentary Hx Dermatological Disorder: No - Musculoskeletal/Rheumatological Hx Musculoskeletal Disorders: Yes Other/Comment: Knee Pain - Gastrointestinal Hx Gastrointestinal Disorders: No - Genitourinary/Gynecological Hx Genitourinary Disorders: No - Psychiatric Hx Psychophysiologic Disorder: No Hx Substance Use: No - Past Surgical History Past Surgical History: No Previous - Surgical History Hx Orthopedic Surgery: Yes (finger 2008, R KNEE) - Anesthesia Hx Anesthesia: Yes Hx Anesthesia Reactions: No Hx Malignant Hyperthermia: No - Suicidal Assessment Feels Threatened In Home Enviroment: No Family/Social History - Physician Review Nursing Documentation Reviewed: Yes Family/Social History: Unknown Family HX Smoking Status: Current Some Days Smoker Hx Alcohol Use: Yes Hx Substance Use: No Hx Substance Use Treatment: No Allergies/Home Meds Allergies/Adverse Reactions: Allergies peanut Allergy (Verified 10/30/17 23:51) RASH SEASONAL Allergy (Uncoded 10/30/17 23:51) WHEEZING Review of Systems - Physician Review All systems were reviewed & negative as marked: Yes - Review of Systems Constitutional: Normal Eyes: Normal ENT: Normal Respiratory: SOB, Cough. absent: Sputum Cardiovascular: Normal Gastrointestinal: Normal Genitourinary Male: Normal Musculoskeletal: Normal Skin: Normal Neurological: Normal Endocrine: Normal Hemo/Lymphatic: Normal Psychiatric: Normal Physical Exam Vital Signs Reviewed: Yes Vital Signs Temp Pulse Resp BP Pulse Ox 01/17/18 21:00 98.5 F 60 18 140/72 97 Temperature: Afebrile Blood Pressure: Normal Pulse: Regular Respiratory Rate: Normal Appearance: Positive for: Well-Appearing, Non-Toxic, Comfortable Pain Distress: None Mental Status: Positive for: Alert and Oriented X 3 - Systems Exam Head: Present: Atraumatic, Normocephalic Pupils: Present: PERRL Extroacular Muscles: Present: EOMI Conjunctiva: Present: Normal Mouth: Present: Moist Mucous Membranes Neck: Present: Normal Range of Motion Respiratory/Chest: Present: Good Air Exchange, Wheezes (Mild expiratory wheeze at the bases). No: Respiratory Distress, Accessory Muscle Use, Decreased Breath Sounds, Rales, Retracting, Rhonchi Cardiovascular: Present: Regular Rate and Rhythm, Normal S1, S2. No: Murmurs Abdomen: No: Tenderness, Distention, Peritoneal Signs Back: Present: Normal Inspection Upper Extremity: Present: Normal Inspection. No: Cyanosis, Edema Lower Extremity: Present: Normal Inspection. No: Edema Neurological: Present: GCS=15, CN II-XII Intact, Speech Normal Skin: Present: Warm, Dry, Normal Color. No: Rashes Psychiatric: Present: Alert, Oriented x 3, Normal Insight, Normal Concentration Medical Decision Making ED Course and Treatment: 01/18/18 00:10 PT in ED for stated history. He was not in any distress. Not hypoxic. His lung was CTA b/l on re evaluation s/p medication Chest xray NAD Result was DW the pt and he was DC home with antitussive and prednisone. Advised to continue with his inhaler as needed counselled on smoking cessation. Referred to his PMD. - RAD Interpretation Radiology Orders: 01/17/18 20:32 CHEST TWO VIEWS (PA/LAT) [RAD] Stat - Medication Orders Current Medication Orders: Discontinued Medications Albuterol/Ipratropium (Duoneb 3 Mg/0.5 Mg (3 Ml) Ud) 3 ml IH STAT STA Stop: 01/17/18 20:56 Last Admin: 01/17/18 21:00 Dose: 3 ml Albuterol/Ipratropium (Duoneb 3 Mg/0.5 Mg (3 Ml) Ud) 3 ml IH STAT STA Stop: 01/17/18 22:02 Prednisone (Prednisone Tab) 40 mg PO STAT STA Stop: 01/17/18 20:57 Last Admin: 01/17/18 21:42 Dose: 40 mg Disposition/Present on Arrival - Present on Arrival Any Indicators Present on Arrival: No History of DVT/PE: No History of Uncontrolled Diabetes: No Urinary Catheter: No History of Decub. Ulcer: No History Surgical Site Infection Following: None - Disposition Have Diagnosis and Disposition been Completed?: Yes Diagnosis: Acute bronchitis Disposition: HOME/ ROUTINE Disposition Time: 10:55 Patient Plan: Discharge Condition: STABLE Discharge Instructions (ExitCare): Acute Bronchitis Additional Instructions: Follow up with your Doctor Return to ED for any new or worsening symptoms Prescriptions: guaiFENesin/Codeine [Codeine/Guaifenesin 10 MG/5 Ml-100 MG/5 Ml 5] 60 ml PO Q6 #5 udc predniSONE [Prednisone] 10 mg PO DAILY #4 tab Referrals: [facility] [Primary Care Provider] - Follow up with primary Galilea Dugan MD [Medical Doctor] - Follow up with primary Forms: [employer] (Norwegian)
[2018-01-17] MEDS ORDERED: guaiFENesin-Codeine 100-10mg/5ml Syrup (5 ml) UD PO STA (22:51)
[2018-01-18 00:09] VITALS: BP 128/66; PULSE 58; TEMP 98.4; O2SAT 100
--- NOTE | 2018-01-18 08:47 | RAD ---
Date of service: 01/17/2018 HISTORY: cough COMPARISON: 04/23/2017 TECHNIQUE: Chest PA and lateral FINDINGS: LUNGS: No active pulmonary disease. PLEURA: No significant pleural effusion identified. No pneumothorax apparent. CARDIOVASCULAR: No aortic atherosclerotic calcification present. Normal cardiac size. No pulmonary vascular congestion. OSSEOUS STRUCTURES: No significant abnormalities. VISUALIZED UPPER ABDOMEN: Normal. OTHER FINDINGS: None. IMPRESSION: No active disease.
--- NOTE | 2018-01-18 16:22 | CARD ---
APPROVED REPORT Date of service: 01/17/2018 EKG Measurement Heart [id number] <Conclusion> Normal sinus rhythm Normal ECG
== END 2018-01-17 23:04 | disposition home or self-care (01) ==
LOC: ED 19:34
DX: J20.9 Acute bronchitis, unspecified (principal); F17.210 Nicotine dependence, cigarettes, uncomplicated

== ENCOUNTER 2018-03-19 14:05 | Emergency (ER) | payer OTHER ==
[2018-03-19 14:06] VITALS: BMI 22.8
[2018-03-19 14:59] VITALS: BP 106/64; PULSE 59; RESP 18; TEMP 98.3; O2SAT 97
== END 2018-03-19 17:36 | disposition left against medical advice (07) ==
LOC: ED 14:05
DX: Z02.89 Encounter for other administrative examinations (principal); J02.9 Acute pharyngitis, unspecified

== ENCOUNTER 2018-05-11 02:34 | Emergency (ER) | payer SELFPAY ==
[2018-05-11 03:50] VITALS: BMI 23.3
[2018-05-11 03:58] VITALS: RESP 16
--- NOTE | 2018-05-11 04:56 | ED PDOC ---
Arrival/HPI - General Chief Complaint: Fever Time Seen by Provider: 05/11/18 03:34 Historian: Patient - History of Present Illness Narrative History of Present Illness (Text): 05/11/18 04:55 Js Hugo is a 33 year old male smoker, with past medical history of bronchitis, who presents to the emergency department complaining of a sore throat with a dry cough for the past few days. Patient reports associated body aches. Patient denies any chest pain, shortness of breath, nausea, vomiting, diarrhea, urinary symptoms, back pain, neck pain, headache, dizziness, or any other complaints. Time/Duration: < week Symptom Onset: Gradual Symptom Course: Unchanged Activities at Onset: Light Context: Home Past Medical History - Provider Review Nursing Documentation Reviewed: Yes - Past History Past History: No Previous - Infectious Disease Hx of Infectious Diseases: None - Tetanus Immunization Tetanus Immunization: Unknown - Past Medical History Past Medical History: No Previous - Cardiac Hx Cardiac Disorders: No - Pulmonary Hx Respiratory Disorders: Yes Hx Bronchitis: Yes - Neurological Hx Neurological Disorder: No - HEENT Hx HEENT Disorder: No - Renal Hx Renal Disorder: No - Endocrine/Metabolic Hx Endocrine Disorders: No - Hematological/Oncological Hx Blood Disorders: No - Integumentary Hx Dermatological Disorder: No - Musculoskeletal/Rheumatological Hx Musculoskeletal Disorders: Yes Other/Comment: Knee Pain - Gastrointestinal Hx Gastrointestinal Disorders: No - Genitourinary/Gynecological Hx Genitourinary Disorders: No - Psychiatric Hx Psychophysiologic Disorder: No Hx Substance Use: No - Past Surgical History Past Surgical History: No Previous - Surgical History Hx Orthopedic Surgery: Yes (finger 2008, R KNEE) - Anesthesia Hx Anesthesia: Yes Hx Anesthesia Reactions: No Hx Malignant Hyperthermia: No - Suicidal Assessment Feels Threatened In Home Enviroment: No Family/Social History - Physician Review Nursing Documentation Reviewed: Yes Family/Social History: Unknown Family HX Smoking Status: Light Smoker < 10 Cigarettes Daily Hx Alcohol Use: Yes Frequency of alcohol use: Socially Hx Substance Use: No Hx Substance Use Treatment: No Allergies/Home Meds Allergies/Adverse Reactions: Allergies peanut Allergy (Verified 05/11/18 03:51) RASH SEASONAL Allergy (Uncoded 05/11/18 03:51) WHEEZING Review of Systems - Physician Review All systems were reviewed & negative as marked: Yes - Review of Systems Constitutional: absent: Fatigue, Weight Change Eyes: absent: Vision Changes Respiratory: Cough, Other (sore throat. ). absent: SOB, Wheezing Cardiovascular: absent: Chest Pain Gastrointestinal: absent: Abdominal Pain Skin: absent: Rash Neurological: absent: Headache, Dizziness Physical Exam Vital Signs Reviewed: Yes Vital Signs Temp Pulse Resp BP Pulse Ox 05/11/18 04:41 100.4 F H 05/11/18 03:52 100.4 F H 67 16 120/69 99 Temperature: Febrile Blood Pressure: Normal Pulse: Regular Respiratory Rate: Normal Appearance: Positive for: Well-Appearing, Non-Toxic, Comfortable Pain Distress: None Mental Status: Positive for: Alert and Oriented X 3 - Systems Exam Head: Present: Atraumatic, Normocephalic Pupils: Present: PERRL. No: Sluggish, Non-Reactive Extroacular Muscles: Present: EOMI Conjunctiva: Present: Normal Ears: Present: Normal, NORMAL TM, Normal Canal. No: Erythema, TM Bulging, Fluid, TM Perf Mouth: Present: Moist Mucous Membranes Pharnyx: Present: ERYTHEMA (Erythema to posterior pharynx). No: EXUDATE, TONSILS ENLARGED, Peritonsilar Swelling, Uvular Deviation, Muffled/Hoarse Voice, Strider, Soft Palate/Uvular Edema Nose (External): Present: Atraumatic Nose (Internal): Present: Normal Inspection Neck: Present: Normal Range of Motion. No: Meningeal Signs, MIDLINE TENDERNESS, Paraspinal Tenderness Respiratory/Chest: Present: Clear to Auscultation, Good Air Exchange. No: Respiratory Distress, Accessory Muscle Use, Wheezes, Rhonchi Cardiovascular: Present: Regular Rate and Rhythm, Normal S1, S2. No: Murmurs Abdomen: No: Tenderness, Distention, Peritoneal Signs Back: Present: Normal Inspection Upper Extremity: Present: Normal Inspection. No: Cyanosis, Edema Lower Extremity: Present: Normal Inspection. No: Edema Neurological: Present: GCS=15, CN II-XII Intact, Speech Normal Skin: Present: Warm, Dry, Normal Color. No: Rashes Psychiatric: Present: Alert, Oriented x 3, Normal Insight, Normal Concentration Medical Decision Making ED Course and Treatment: 05/11/18 05:08 Impression: 33 year old male who present to the emergency department complaining of a sore throat. Plan: -- Chest X-ray -- Acetaminophen -- Influenza A B -- Reassess and disposition Prior Visits: Notes and results from previous visits were reviewed. Progress Notes: 05/11/18 05:30 CXR reviewed, shows no acute processes. - RAD Interpretation Radiology Orders: 05/11/18 04:18 CHEST PORTABLE [RAD] Stat Checkroom Attendant: ED Physician - Medication Orders Current Medication Orders: Discontinued Medications Acetaminophen (Tylenol 325mg Tab) 650 mg PO STAT STA Stop: 05/11/18 04:18 Last Admin: 05/11/18 04:41 Dose: 650 mg MAR Pain/Vitals Document 05/11/18 04:41 KV (Rec: 05/11/18 04:44 KV [id number]) Pain Reassessment Is This A Pain ReAssessment? No Vitals Temperature (97.6 F-99.6 F) 100.4 F Temperature Source Oral - Scribe Statement The provider has reviewed the documentation as recorded by the Scribe Jyoti Morillo training under Fina Abraham All medical record entries made by the Scribe were at my direction and personally dictated by me. I have reviewed the chart and agree that the record accurately reflects my personal performance of the history, physical exam, medical decision making, and the department course for this patient. I have also personally directed, reviewed, and agree with the discharge instructions and disposition. Disposition/Present on Arrival - Present on Arrival Any Indicators Present on Arrival: No History of DVT/PE: No History of Uncontrolled Diabetes: No Urinary Catheter: No History of Decub. Ulcer: No History Surgical Site Infection Following: None - Disposition Have Diagnosis and Disposition been Completed?: Yes Diagnosis: Tonsillitis, Bronchitis Disposition: HOME/ ROUTINE Disposition Time: 05:22 Patient Plan: Discharge Patient Problems: Current Active Problems Problem Status Onset Bronchitis Acute Tonsillitis Acute Condition: STABLE Discharge Instructions (ExitCare): Acute Bronchitis, Adult (DC), Sore Throat, Adult (DC) Additional Instructions: Take meds as prescribed/no smoking/drink plenty of cool liquids/follow up with your doctor Prescriptions: Amoxicillin/Clavulanate [Augmentin 875 MG-125 MG] 1 tab PO BID #20 tab Benzonatate [Tessalon Perles] 100 mg PO TID PRN #21 sgl PRN Reason: Cough Forms: [facility] ([place]ym[place]), WORK NOTE
[2018-05-11] MEDS ORDERED: Amoxicillin-Clav 875-125 mg Tab PO STA (05:24)
[2018-05-11 05:25] VITALS: BP 122/56; PULSE 68; O2SAT 98
[2018-05-11 05:49] VITALS: TEMP 99.3
--- NOTE | 2018-05-11 08:32 | RAD ---
Date of service: 05/11/2018 HISTORY: fever COMPARISON: 01/17/2018 TECHNIQUE: 1 view obtained. FINDINGS: LUNGS: No active pulmonary disease. PLEURA: No significant pleural effusion identified, no pneumothorax apparent. CARDIOVASCULAR: No aortic atherosclerotic calcification present. Normal cardiac size. No pulmonary vascular congestion. OSSEOUS STRUCTURES: No significant abnormalities. VISUALIZED UPPER ABDOMEN: Normal. OTHER FINDINGS: None. IMPRESSION: No active disease.
== END 2018-05-11 05:49 | disposition home or self-care (01) ==
LOC: ED 02:34
DX: J40 Bronchitis, not specified as acute or chronic (principal); J03.90 Acute tonsillitis, unspecified; F17.210 Nicotine dependence, cigarettes, uncomplicated

== ENCOUNTER 2018-07-02 21:15 | Emergency (ER) | payer SELFPAY ==
[2018-07-02 22:30] VITALS: BP 119/80; PULSE 55; RESP 18; TEMP 97.7; O2SAT 97; BMI 22.8
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
--- NOTE | 2018-07-03 08:48 | RAD ---
Date of service: 07/02/2018 PROCEDURE: Right Foot Radiographs. HISTORY: foot injury COMPARISON: None. TECHNIQUE: 3 views obtained. FINDINGS: BONES: Normal. No fracture. JOINTS: There is a dislocation of the 2nd DIP joint. There is a small bony fragment consistent with an avulsion fracture. SOFT TISSUES: Normal. OTHER FINDINGS: None. IMPRESSION: There is a dislocation of the 2nd DIP joint. There is a small bony fragment consistent with an avulsion fracture.
== END 2018-07-03 01:22 | disposition home or self-care (01) ==
LOC: ED 21:15
DX: S93.114A Dislocation of interphalangeal joint of right lesser toe(s), initial encounter (principal); W01.0XXA Fall on same level from slipping, tripping and stumbling without subsequent striking against object, initial encounter; Y93.01 Activity, walking, marching and hiking; Y92.480 Sidewalk as the place of occurrence of the external cause; F17.210 Nicotine dependence, cigarettes, uncomplicated; Z83.3 Family history of diabetes mellitus; Z82.49 Family history of ischemic heart disease and other diseases of the circulatory system